=== PATIENT | female | born 1980 | race Caucasian/White ===

== ENCOUNTER 2018-02-20 18:47 | Emergency (ER) | payer OTHER, MEDICAID, SELFPAY ==
[2018-02-20 19:08] VITALS: BP 111/76; PULSE 69; RESP 16; TEMP 36.7; O2SAT 100; BMI 20.5
--- NOTE | 2018-02-20 20:04 | ED_ITS ---
HPI - Extremity Injury (Upper) <MARI Rodriguez - Last Filed: 02/20/18 22:59> General Chief Complaint: Extremity Injury, Upper Stated Complaint: states infection to middle finger on her right ocampo Time Seen by Provider: 02/20/18 20:32 Source: patient History of Present Illness HPI narrative: 37-year-old female here for complaint of redness and swelling to the distal aspect of her left middle finger over the past 4 days. She reports that she accidentally tore the side of her middle finger nail that has healed over however the redness started shortly after this to that area. She denies any purulent drainage from that area. She reports that the redness has not subsided. She denies any other trauma to the left middle finger. She denies any fevers or chills. No other concerns or complaints. complaint: injury to: left and finger Related Data Previous Rx's Medication Instructions Recorded levothyroxine [Synthroid] 100 mcg PO QAM #30 tab 04/20/16 fluconazole [Diflucan] 150 mg PO QDAY #1 tab 06/28/16 levothyroxine [Synthroid] 75 mcg PO Q DAY #30 tab 09/30/16 albuterol sulfate [Ventolin HFA] 0 puff INH Q4HP PRN #1 ea 10/13/17 cephalexin 500 mg PO QID #24 tab 02/20/18 Allergies Allergy/AdvReac Type Severity Reaction Status Date / Time oxycodone [OXYCODONE] AdvReac Mild NAUSEATED Unverified 02/20/18 19:14 Review of Systems <MARI Rodriguez - Last Filed: 02/20/18 22:59> Constitutional Denies chills, Denies fever(s), Denies lethargy and Denies weakness Eyes Denies change in vision, Denies eye discharge, Denies irritation and Denies loss of vision ENT Ears, Nose, Mouth, and Throat: Denies change in voice, Denies neck pain and Denies sore throat Cardiovascular Denies chest pain, Denies irregular heart rhythm, Denies lightheadedness, Denies palpitations, Denies dyspnea, Denies dyspnea on exertion and Denies orthopnea Respiratory Denies cough, Denies dyspnea, Denies dyspnea on exertion and Denies wheezing Gastrointestinal Gastrointestinal: Denies abdominal pain, Denies change in bowel habits, Denies diarrhea, Denies nausea and Denies vomiting Genitourinary Denies hematuria, Denies flank pain, Denies urinary incontinence and Denies urinary urgency Musculoskeletal Denies neck pain Comments: Erythema and swelling to distal left middle finger Integumentary/Breasts Denies pruritus, Denies erythema, Denies rash and Denies wounds Neurologic Denies confusion, Denies loss of vision and Denies weakness Psychiatric Denies anxiety, Denies confusion, Denies depression, Denies homicidal ideation and Denies suicidal ideation Endocrine Denies palpitations Hematologic/Lymphatic Denies easy bruising Allergic/Immunologic Denies wheezing Exam <MARI Rodriguez - Last Filed: 02/20/18 22:59> Initial Vital Signs Initial Vital Signs: Vital Signs Temperature 98.0 F 02/20/18 19:08 Pulse Rate 69 02/20/18 19:08 Respiratory Rate 16 02/20/18 19:08 Blood Pressure 111/76 02/20/18 19:08 Pulse Oximetry 100 02/20/18 19:08 Const General: cooperative and well developed Nutritional Appearance: well nourished Orientation: alert, awake, oriented x3 and not confused [facility] Mouth: oral mucosae normal and moist mucous membranes Eyes General: appearance normal, both eyes and all related structures Eyelids: eyelids normal Conjunctivae: conjunctivae normal Sclera: sclerae normal Pupils: PERRL EOM: EOM intact bilaterally Neck Neck: normal visual inspection, trachea midline, No lymphadenopathy, No midline deformity and No JVD Lymphatic: No lymphedema Resp Effort & Inspection: normal respiratory effort, able to speak in complete sentences, no respiratory distress and no use of accessory muscles Auscultation: clear to auscultation bilaterally, no rales, no rhonchi and no wheezes Cardio Rate: regular rate Rhythm: regular rhythm Heart Sounds: no click, no gallops, no murmurs and no rubs Pulses: normal peripheral pulses Skin General: no rashes or lesions noted, No jaundice and No petechiae Extrem Other: Left middle finger with erythema to the distal phalanx of the left middle finger around the medial aspect of the nail margin. No purulent drainage. Distal sensation is intact. Full range of motion. Distal cap refill less than 2 sec. <Po Luo MD - Last Filed: 02/21/18 02:14> Initial Vital Signs Initial Vital Signs: Vital Signs Temperature 98.0 F 02/20/18 19:08 Pulse Rate 69 02/20/18 19:08 Respiratory Rate 16 02/20/18 19:08 Blood Pressure 111/76 02/20/18 19:08 Pulse Oximetry 100 02/20/18 19:08 Course <MARI Rodriguez - Last Filed: 02/20/18 22:59> Orders Ordered: Discontinued Medications Cefazolin Sodium (Keflex) 1 bottle MISC SEEINSTR ONE Stop: 02/20/18 20:52 Last Admin: 02/20/18 20:58 Dose: 1 bottle Cephalexin HCl (Keflex) 500 mg PO NOW ONE Stop: 02/20/18 20:51 Last Admin: 02/20/18 21:00 Dose: Vital Signs - 8 hr 02/20/18 19:08 02/20/18 20:59 Temperature 98.0 F 98.7 F Pulse Rate 69 76 Respiratory Rate 16 16 Blood Pressure 111/76 Blood Pressure [Left Arm] 126/87 H Pulse Oximetry 100 99 <Po Luo MD - Last Filed: 02/21/18 02:14> Orders Ordered: Discontinued Medications Cefazolin Sodium (Keflex) 1 bottle MISC SEEINSTR ONE Stop: 02/20/18 20:52 Last Admin: 02/20/18 20:58 Dose: 1 bottle Cephalexin HCl (Keflex) 500 mg PO NOW ONE Stop: 02/20/18 20:51 Last Admin: 02/20/18 21:00 Dose: Vital Signs - 8 hr 02/20/18 19:08 02/20/18 20:59 Temperature 98.0 F 98.7 F Pulse Rate 69 76 Respiratory Rate 16 16 Blood Pressure 111/76 Blood Pressure [Left Arm] 126/87 H Pulse Oximetry 100 99 MDM - Extremity Injury (Upper) <MARI Rodriguez - Last Filed: 02/20/18 22:59> MDM Narrative Medical decision making narrative: Small needle incision was completed to the area of swelling into the left middle finger no purulent drainage was expressed. She is treated for paronychia with oral antibiotics cephalexin. [id number] Tylenol Motrin as needed for any discomfort. Follow up with her primary care provider in the next couple days for re-evaluation. For any worsening symptoms return to the emergency room. Discharge Plan Departure Patient Disposition: Home, Self-Care Clinical Impression: Paronychia of finger of left hand Discharge Date/Time: 02/20/18 21:19 Interventions: ED Discharge Assessment Last Done: 02/20/18 21:19 Instructions: DI for Paronychia Activity Restrictions/Additional Instructions: Signs and symptoms presents as infection into the distal finger and nail margins. You are placed on antibiotic called cephalexin use as directed. Follow up with primary care provider in the next couple days for re-evaluation. Use [id number] Tylenol and or Motrin as needed for any discomfort. Return emergency room for any worsening symptoms. Prescriptions: New cephalexin 500 mg tablet 500 mg PO QID Qty: 24 RF: 0 No Action levothyroxine [Synthroid] 100 MCG tablet 100 mcg PO QAM Qty: 30 RF: 6 fluconazole [Diflucan] 150 MG tablet 150 mg PO QDAY Qty: 1 RF: 1 levothyroxine [Synthroid] 75 MCG tablet 75 mcg PO Q DAY Qty: 30 RF: 3 albuterol sulfate [Ventolin HFA] 90 MCG/PUFF HFA aerosol inhaler INH Q4HP PRNQty: 1 RF: 0
--- NOTE | 2018-02-20 20:21 | PC.NURSE ---
pt reports caught her fingernail of rt third digit several days ago, now c/o increased pain/tenderness/swelling surrounding nail bed, cap refill immediate, full AROM/sensation
[2018-02-20] MEDS: cephALEXin 250 MG PREPACK 1 BOTTLE MISC (20:58)
[2018-02-20 20:59] VITALS: BP 126/87; PULSE 76; RESP 16; TEMP 37.1; O2SAT 99
== END 2018-02-20 21:19 | disposition home or self-care (01) ==
PROVIDERS: Emergency Provider Nurse Practitioner Family
DX: L03.012 Cellulitis of left finger (principal)
CPT/HCPCS: 99282; 99283

== ENCOUNTER 2018-02-28 12:50 | Emergency (ER) | payer OTHER, MEDICAID, SELFPAY ==
[2018-02-28 13:02] VITALS: BP 113/80; PULSE 69; RESP 20; TEMP 36.6; O2SAT 100
--- NOTE | 2018-02-28 13:39 | PC.NURSE ---
pt seen on 02/22 by states scott,given antibiotic, but yesterday with wrist and forearm swelling and radiating pain, has paronychia left middle finger. denies fever,vomiting
--- NOTE | 2018-02-28 13:47 | DI.RAD.S_ITS ---
PROCEDURE: XR FINGER LT MIN 2V INDICATIONS: infection after compression/twisting injury (2 week) TECHNIQUE: AP hand, 2 views of the third finger(s) acquired. COMPARISON: None. FINDINGS: Bones: No fractures or dislocations. No bony erosion. No suspicious bony lesions. Soft tissues: No suspicious soft tissue calcifications. No opaque from body. IMPRESSION: No fracture. No bone erosion. No opaque foreign body. Dictated by: Rose Marie Boothe M.D. on 02/28/2018 at 14:14 Approved by: Rose Marie Boothe M.D. on 02/28/2018 at 14:15
--- NOTE | 2018-02-28 13:54 | ED_ITS ---
HPI - Extremity Injury (Upper) <Comfort Sparks PA-C - Last Filed: 02/28/18 16:20> General Chief Complaint: Extremity Injury, Upper Stated Complaint: INFECTION IN FINGER Time Seen by Provider: 02/28/18 13:07 Source: patient Mode of arrival: ambulatory Limitations: no limitations History of Present Illness HPI narrative: This 37-year-old female returns due to left middle finger infection. She was seen here 8 days ago, I and D was attempted and she states no pus was drained. She was put on antibiotic and states this seemed to be improving but last night she noticed she had swelling in her hand and redness streaking up into her mid posterior forearm. She states that she had been playing with kids prior to that but no specific injury then. She states it had a bruised and throbbing sensation. She elevated it and it does look better today. She states initially she caught the edge of her nail in a window blinds aamir prior to all of this starting. It looked okay for the 1st couple of days but then started to swelling get painful. She denies any fever, difficulty moving the finger, weakness or other new symptoms. She denies possibility of stating she still has her IUD Related Data Previous Rx's Medication Instructions Recorded levothyroxine [Synthroid] 100 mcg PO QAM #30 tab 04/20/16 fluconazole [Diflucan] 150 mg PO QDAY #1 tab 06/28/16 levothyroxine [Synthroid] 75 mcg PO Q DAY #30 tab 09/30/16 albuterol sulfate [Ventolin HFA] 0 puff INH Q4HP PRN #1 ea 10/13/17 cephalexin 500 mg PO QID #24 tab 02/20/18 amoxicillin-pot clavulanate 1 tab PO Q12H #14 tab 02/28/18 [Augmentin] Allergies Allergy/AdvReac Type Severity Reaction Status Date / Time oxycodone [OXYCODONE] AdvReac Mild NAUSEATED Unverified 02/20/18 19:14 Review of Systems <Comfort Sparks PA-C - Last Filed: 02/28/18 16:20> Review of Systems All systems reviewed & are unremarkable except as noted in HPI and below Exam <Comfort Sparks PA-C - Last Filed: 02/28/18 16:20> Narrative Exam Narrative: GENERAL APPEARANCE: Patient sitting comfortably, in no distress. LUNGS: Clear to auscultation bilaterally. HEART: Rate and rhythm regular without murmur, normal S1 and S2, no S3 or S4. DERMATOLOGIC: Left middle finger lateral nail border there is some blue cream discoloration and the surrounding skin lateral and midline nail border is erythematous, trace effusion, cool to touch, mildly tender. No drainage. MUSCULOSKELETAL: Full range of motion of the left middle finger Initial Vital Signs Initial Vital Signs: Vital Signs Temperature 97.9 F 02/28/18 13:02 Pulse Rate 69 02/28/18 13:02 Respiratory Rate 20 02/28/18 13:02 Blood Pressure 113/80 02/28/18 13:02 Pulse Oximetry 100 02/28/18 13:02 <Po Luo MD - Last Filed: 02/28/18 18:54> Initial Vital Signs Initial Vital Signs: Vital Signs Temperature 97.9 F 02/28/18 13:02 Pulse Rate 69 02/28/18 13:02 Respiratory Rate 20 02/28/18 13:02 Blood Pressure 113/80 02/28/18 13:02 Pulse Oximetry 100 02/28/18 13:02 Course <Comfort Sparks PA-C - Last Filed: 02/28/18 16:20> Orders Ordered: ED Orders 02/28/18 13:47 XR finger LT min 2V Stat Vital Signs - 8 hr 02/28/18 13:02 02/28/18 14:44 Temperature 97.9 F Pulse Rate 69 67 Respiratory Rate 20 10 L Blood Pressure 113/80 Blood Pressure [Left Arm] 100/56 L Pulse Oximetry 100 100 <Po Luo MD - Last Filed: 02/28/18 18:54> Orders Ordered: ED Orders 02/28/18 13:47 XR finger LT min 2V Stat Vital Signs - 8 hr 02/28/18 13:02 02/28/18 14:44 Temperature 97.9 F Pulse Rate 69 67 Respiratory Rate 20 10 L Blood Pressure 113/80 Blood Pressure [Left Arm] 100/56 L Pulse Oximetry 100 100 MDM - Extremity Injury (Upper) <LADARIUS Hyatt Last Filed: 02/28/18 16:20> Imaging Data extremity: Radiologist's impression: [address] [address] XRay Report Signed Patient: Derek Carmichael MR#: [id number] : 1980 Acct:[id number] Age/Sex: 37 / F Date of Service: 02/28/18 Loc: ED Accession Number: [id number] Procedure: XR finger LT min 2V Ordering Provider: Comfort Sparks P.A-C PROCEDURE: XR FINGER LT MIN 2V INDICATIONS: infection after compression/twisting injury (2 week) TECHNIQUE: AP hand, 2 views of the third finger(s) acquired. COMPARISON: None. FINDINGS: Bones: No fractures or dislocations. No bony erosion. No suspicious bony lesions. Soft tissues: No suspicious soft tissue calcifications. No opaque from body. IMPRESSION: No fracture. No bone erosion. No opaque foreign body. Dictated by: Rose Marie Boothe M.D. on 02/28/2018 at 14:14 Approved by: Rose Marie Boothe M.D. on 02/28/2018 at 14:15 Discharge Plan Departure Patient Disposition: Home, Self-Care Clinical Impression: Acute paronychia of finger of left hand Discharge Date/Time: 02/28/18 14:50 Interventions: ED Discharge Assessment Last Done: 02/28/18 14:50 Instructions: DI for Cellulitis -- Adult Activity Restrictions/Additional Instructions: You have an infection around your nail border called paronychia. Sometimes this can be relieved by draining it, but I do not see a localized swollen area today to drain. Since it has improved from yesterday, we will try changing your antibiotic (I have sent the prescription in to [facility] for you). Please continue ibuprofen, and also do hot soaks for a few minutes at a time as often as possible as this may help release any drainage or bring the swelling to a head. Return as we talked about if this is acutely worse again, otherwise follow up with your PCP for recheck in a few days to assess her progress on this antibiotic Prescriptions: New amoxicillin-pot clavulanate [Augmentin] 875-125 mg tablet 1 tab PO Q12H Qty: 14 RF: 0 No Action levothyroxine [Synthroid] 100 MCG tablet 100 mcg PO QAM Qty: 30 RF: 6 fluconazole [Diflucan] 150 MG tablet 150 mg PO QDAY Qty: 1 RF: 1 levothyroxine [Synthroid] 75 MCG tablet 75 mcg PO Q DAY Qty: 30 RF: 3 albuterol sulfate [Ventolin HFA] 90 MCG/PUFF HFA aerosol inhaler INH Q4HP PRNQty: 1 RF: 0 cephalexin 500 mg tablet 500 mg PO QID Qty: 24 RF: 0 Referrals: Mary Yee MD [Non-Staff] - <Po Luo MD - Last Filed: 02/28/18 18:54> Cosign ED Attending Cosignature Attestation: I was available clinically for any questions or assistance. I agree with the noted evaluation and treatment plan.
[2018-02-28 14:44] VITALS: BP 100/56; PULSE 67; RESP 10; O2SAT 100
== END 2018-02-28 14:50 | disposition home or self-care (01) ==
PROVIDERS: Emergency Provider Internal Medicine
DX: L03.012 Cellulitis of left finger (principal)
CPT/HCPCS: 73140; 99282; 99283

== ENCOUNTER → 2019-11-22 09:02 | Outpatient (CLI) | payer OTHER, SELFPAY ==
[2019-11-27 05:10] LABS: Percent Free Testosterone 1.72 % (0.50-2.80); Testosterone Free 0.41 ng/dL (0.10-0.85); Testosterone Total 23.9 ng/dL (10.0-55.0)
== END ==
PROVIDERS: Referring Provider Specialist; Visit Provider Specialist
DX: L65.9 Nonscarring hair loss, unspecified (principal)
CPT/HCPCS: 84402; 84403

== ENCOUNTER → 2021-05-10 14:24 | Outpatient (CLI) | payer OTHER, MEDICAID, SELFPAY ==
[2021-05-10 16:12] LABS: COVID19 -Nasal RAPID POSITIVE (Negative)
== END ==
PROVIDERS: Visit Provider Nurse Practitioner Family
DX: U07.1 COVID-19 (principal)
CPT/HCPCS: 87635